=== PATIENT | male | born 1955 | race African-American/Black ===

== ENCOUNTER 2016-11-26 02:36 | Emergency (ER) | payer OTHER ==
[~2016-11-26] VITALS: Ht 185.4 cm; Wt 100.0 kg
[2016-11-26 08:14] VITALS: BP 116/80
== END 2016-11-26 08:26 | disposition home or self-care (01) ==
LOC: ER 02:45
DX: R05 Cough (principal); R09.89 Other specified symptoms and signs involving the circulatory and respiratory systems; C61 Malignant neoplasm of prostate; Z85.46 Personal history of malignant neoplasm of prostate
CPT/HCPCS: 71010; 99283

== ENCOUNTER → 2020-12-09 | Outpatient (CLI) | payer MEDICARE, MEDICAID ==
[~2020-12-09] MED LIST: ATOR40TA70 PO; LISI10TA26 PO; NITR100C PO; PHEN-910 PO; TAMS-11 PO
== END | disposition home or self-care (01) ==
LOC: LAB 17:17
PROVIDERS: ATTEND Urology
DX: Z01.812 Encounter for preprocedural laboratory examination (principal); Z20.822 Contact with and (suspected) exposure to COVID-19
CPT/HCPCS: 87426

== ENCOUNTER → 2020-12-10 | Day surgery (SDC) | payer MEDICARE, MEDICAID ==
[~2020-12-10] VITALS: Ht 185.4 cm; Wt 104.3 kg
[~2020-12-10] MED LIST changes: +FENTANYL CITRATE/PF 50MCG/ML 2ML VIAL ONE; +GLYCOPYRROLATE 0.2 MG/ML 2ML VIAL ONE; +LACTATED RINGERS 1,000 ML IV SCH; +METOCLOPRAMIDE HCL 10MG/2ML VIAL ONE; +MIDAZOLAM HCL 2 MG/2 ML VIAL ONE; +ONDANSETRON HCL 4MG/2ML INJ ONE; +PROPOFOL 200MG/20ML VIAL IV ONE; +SUCCINYLCHOLINE CHLORIDE 200MG/10ML IV ONE
== END | disposition home or self-care (01) ==
LOC: OR 05:25
PROVIDERS: ATTEND Urology
DX: N35.919 Unspecified urethral stricture, male, unspecified site (principal); N21.0 Calculus in bladder; I10 Essential (primary) hypertension; Z92.3 Personal history of irradiation; Z85.46 Personal history of malignant neoplasm of prostate; Z79.899 Other long term (current) drug therapy; Z98.890 Other specified postprocedural states
CPT/HCPCS: 53600; 82360; 88300; C1893; J2250; J2405; J2704; J2765; J3010; J0330; J3490

== ENCOUNTER → 2021-06-17 | Day surgery (SDC) | payer MEDICARE, MEDICAID ==
[~2021-06-17] VITALS: Ht 185.4 cm; Wt 102.1 kg
[~2021-06-17] MED LIST changes: +CEFAZOLIN SODIUM 1000MG/VIAL ONE; +DEXAMETHASONE 4MG/ML 1ML VIAL ONE; -GLYCOPYRROLATE 0.2 MG/ML 2ML VIAL ONE; +HYDROCODONE/ACETAMINOPHEN 10/325MG TABLET PO PRN; +HYDROMORPHONE HCL/PF 2MG/ML CPJ IV PRN; +MEPERIDINE HCL/PF 25MG/ML CPJ IV PRN; -METOCLOPRAMIDE HCL 10MG/2ML VIAL ONE; +MORPHINE SULFATE 2 MG/ML CPJ (NOT FOR IM USE) IV PRN; -NITR100C PO; +ONDANSETRON HCL 4MG/2ML INJ IV PRN; -PHEN-910 PO; +SODIUM CHLORIDE 0.9% 1,000 ML IV ONE; -TAMS-11 PO
[2021-06-17 10:00] VITALS: BP 144/99
== END | disposition home or self-care (01) ==
LOC: OR 05:50
PROVIDERS: ATTEND Urology
DX: N35.919 Unspecified urethral stricture, male, unspecified site (principal); I10 Essential (primary) hypertension; E78.00 Pure hypercholesterolemia, unspecified; N13.9 Obstructive and reflux uropathy, unspecified; Z85.46 Personal history of malignant neoplasm of prostate; Z87.891 Personal history of nicotine dependence; Z79.899 Other long term (current) drug therapy; Z98.890 Other specified postprocedural states; Z88.8 Allergy status to other drugs, medicaments and biological substances; Z72.89 Other problems related to lifestyle; Z20.822 Contact with and (suspected) exposure to COVID-19
CPT/HCPCS: 52276; 87426; J0330; J0690; J1100; J2250; J2405; J2704; J3010